=== PATIENT | female | born 1940 | race Caucasian/White ===

== ENCOUNTER 2017-03-29 09:55 | Inpatient (IN) | payer MEDICARE ==
[2017-03-29] MEDS ORDERED: PROVENTIL 2.5 MG/3 ML NEB IH PRN (10:24)
[2017-03-29 10:27] LABS: BASOPHIL % 0.1 % (0.0-0.4); Eosinophil % 3.6 % (0.00-5.0); Granulocytes % 78.4 % (36.0-66.0); Lymphocytes % 10.4 % (24.0-44.0); Mean Cell Volume 90.1 fl (78-100); Mean Corpuscular Hemoglobin 28.8 pg (26-32); Mean Platelet Volume 8.8 fl (6-9.5); Monocytes % 7.5 % (0.0-12.0); Platelet Count 397 K/mm3 (150-450); Red Blood Count 4.73 M/mm3 (4.1-5.4); Red Cell Distribution Width 16.5 % (11.5-14.0); White Blood Count 8.3 K/mm3 (4.0-10.5)
[2017-03-29 10:41] LABS: ALBUMIN 2.6 g/dL (3.4-5.0); ALKALINE PHOSPHATASE 73 U/L (46-116); ANION GAP 11.2 MEQ/L (5-15); BLOOD UREA NITROGEN 12 mg/dL (9-20); CHLORIDE 104 mEq/L (98-107); Carbon Dioxide 27.8 mEq/L (21-32); Glucose 92 MG/DL (70-110); SGOT/AST 22 U/L (15-37); SGPT/ALT 20 U/L (12-78); SODIUM 139 mEq/L (136-145); TROPONIN < 0.017 ng/ml (0.000-0.056); Total Protein 6.7 gm/dL (6.4-8.2)
[2017-03-29] MEDS: Sodium Chloride 0.9% 1000 ML 1,000 ML IV SCH (10:48)
[2017-03-29 11:00] LABS: Bilirubin NEGATIVE (NEGATIVE); Blood NEGATIVE Ery/ul (0-5); COMPLETE URINE MICROSCOPIC? NO; Collection Type CCMS; Glucose NEGATIVE (NEGATIVE); Leukocyte Esterase NEGATIVE (NEGATIVE)
[2017-03-29] MEDS ORDERED: ROCEPHIN 1 Gm-D5w 50 ml Bag** 1 G/50 ML IVPB IV SCH (11:00)
[2017-03-29] MEDS ORDERED: MEDICATION INTERVENTION MC PRN (11:33)
[2017-03-29] MEDS ORDERED: PHARMACY DOSING REQUEST MC ONE (12:00)
[2017-03-29] MEDS: CLARITIN 10 MG PO SCH (12:04)
[2017-03-29] MEDS: ECOTRIN 81 MG PO SCH (12:04)
[2017-03-29] MEDS: SYNTHROID 50 MCG PO SCH (12:04)
--- NOTE | 2017-03-29 12:04 | XRAY ---
Exam: Two-view chest from 03/29/2017 Comparison: Two-view chest from 12/26/2015. Indication: Shortness of breath, cough Findings: Upright PA and lateral chest films are submitted for evaluation. The lungs again appear mildly hyperinflated on the lateral image with a mild increased AP diameter of the chest. This is unchanged. The transverse heart size appears borderline enlarged. A calcified mildly tortuous descending thoracic aorta is seen. The current study reveals mild bibasilar airspace disease consistent with small infiltrates and/or atelectasis as well as small bibasilar pleural effusions representing an unfavorable change from 02/25/2016. No significant central vascular congestion is seen. I believe there is some minimal pleural reaction within the minor fissure on the right on the PA film and the inferior aspect of the major fissure on the lateral radiograph. The remainder of the lung sanchez appears clear. Right-sided portacatheter is again seen with the tip in the distal SVC pointing inferiorly. The bones are demineralized. Dorsal kyphosis and mild diffuse thoracic spondylosis are seen. Impression: 1. Development of mild bibasilar airspace opacities consistent with infiltrates/atelectasis as well as small bibasilar pleural effusions. This may reflect pneumonia. Correlate clinically. Follow-up is recommended..
[2017-03-29] MEDS: Protonix 40MG Tablet PO SCH ×2 (12:05→22:08)
[2017-03-29] MEDS: ENOXAPARIN SODIUM SQ SCH (12:48)
[2017-03-29] MEDS ORDERED: TYLENOL EXTRA STRENGTH 500 MG PO SCH (13:00)
--- NOTE | 2017-03-29 13:58 | XRAY ---
Exam: CT of the chest with IV contrast per PE protocol from 03/29/2017. Comparison: PA and lateral chest films from 03/29/[address] of the chest with IV contrast from 08/02/2015. Indication: Elevated d-dimer (610). History of ovarian cancer. Technique: Post-IV contrast axial images were obtained through the chest per PE protocol using 80 cc of Isovue-370 IV contrast. Reconstructed sagittal images and coronal MIP images were obtained. Findings: The central pulmonary arteries enhance well. I see no filling defects to suggest pulmonary emboli. The thoracic aorta appears of normal size and reveals no dissection. A right-sided portacatheter is seen with the tip extending into the SVC. The thyroid gland reveals a calcification within the anterior aspect of the right lobe representing no change. I note some mild mediastinal and right perihilar/infrahilar lymphadenopathy. This appears to be new as compared to 08/02/2015. On axial image #89 there is an 8 mm in diameter short axis lymph node within the right paratracheal projection. Within the distal right paratracheal projection there is 1.1 cm in diameter short axis lymph node on axial image #92. Just inferior to this, anterior and to the right of the sofía there is a 1.2 cm in short axis lymph node on axial image #95. The lymph node within the right hilum measuring about about 1.5 cm in short axis on axial image #100. There is also a 1.7 cm in diameter short axis right infrahilar lymph node on axial image #24. Some coronary artery vascular calcification is seen on the left. A granulomatous calcification is seen at the lower posterior margin of the left hilum representing no change. There is a moderate posterior layering right pleural effusion and a mild to moderate posterior layering left pleural effusion. I also note some focal atelectasis and mild airspace infiltrate at the central right lung base. Mild atelectasis/scarring is seen at the anterior medial right lung base and at the anterior left lung base. No soft tissue lung nodules are seen. There is a mild hiatal hernia. Within the left adrenal gland there is a new 2 cm in diameter solid soft tissue nodule which is not seen on the exam of 08/02/2015. Given the patient's history of ovarian cancer, an adrenal metastasis must be considered. This measures + 71 Hounsfield units. The right adrenal gland appears unremarkable. The remainder of the visualized upper abdomen appears normal. Impression: 1. I see no definite findings to suggest pulmonary emboli. 2. However, there is a moderate posterior right pleural effusion and a mild to moderate posterior left pleural effusion. Consider fluid volume overload versus chronic heart failure. 3. I note some new mediastinal and right perihilar/infrahilar lymphadenopathy as compared to 08/02/2015. I do not know whether this is due to reactive lymphadenopathy or metastatic disease. Consider further evaluation with a PET/CT fusion scan. 4. In addition, there is a new 2 cm in diameter left adrenal nodule which is not seen on the prior CT study of 08/02/2015. A left adrenal metastasis must be considered. The patient has a history of ovarian cancer. 5. I note some bibasilar atelectatic changes. In addition, there is some mild airspace infiltrate at the mid posterior right lung base. Concomitant pneumonia is not excluded. 6. Stable mild retrocardiac hiatal hernia. 7. Right-sided PICC line is again seen with the tip in the SVC.
[2017-03-29] MEDS: PROVENTIL 2.5 MG/3 ML NEB IH SCH ×3 (15:07→23:17)
[2017-03-29] MEDS: TYLENOL EXTRA STRENGTH 500 MG PO SCH ×2 (15:26→22:08)
[2017-03-29] MEDS: Levofloxacin 500MG/100ML D5W 500 MG/100 ML BAG IV SCH (16:10)
[2017-03-29] MEDS ORDERED: Neurontin 100 MG PO SCH (22:00)
[2017-03-29] MEDS ORDERED: NON-FORMULARY ITEM (Omeprazole [Prilosec] 40 MG) PO SCH (22:00)
[2017-03-29] MEDS: Mirapex 0.5 MG Tablet PO SCH (22:06)
[2017-03-29] MEDS: NEURONTIN 300 MG PO SCH (22:07)
[2017-03-29] MEDS: NORVASC 5 MG PO SCH (22:07)
[2017-03-30] MEDS: Sodium Chloride 0.9% 1000 ML 1,000 ML IV SCH ×2 (00:03→12:01)
[2017-03-30] MEDS: ENOXAPARIN SODIUM SQ SCH ×2 (00:03→08:49)
[2017-03-30] MEDS: PROVENTIL 2.5 MG/3 ML NEB IH SCH ×6 (03:10→23:11)
[2017-03-30] MEDS: TYLENOL EXTRA STRENGTH 500 MG PO SCH ×4 (04:23→22:08)
[2017-03-30] MEDS: CLARITIN 10 MG PO SCH (08:47)
[2017-03-30] MEDS: Protonix 40MG Tablet PO SCH ×2 (08:47→22:06)
[2017-03-30] MEDS: ECOTRIN 81 MG PO SCH (08:47)
[2017-03-30] MEDS: SYNTHROID 50 MCG PO SCH (08:48)
[2017-03-30] MEDS ORDERED: ASPIRIN PO SCH (10:00)
--- NOTE | 2017-03-30 11:06 | PCM.HP ---
History of Present Illness - Chief Complaint Chief Complaint: cough,sob History of Present Illness: is a 76 year old female pt of mine from [facility] who came to infusion for a regular flush and was found to be SOB. She does c/o 3d of increased cough and SOB; had some production of faith sputum. Her d-dimer was elevated but CT chest negative for PE (likely pneumonia seen). Also on CT were new lymph nodes in mediastinum and R perihilar area, as well as a new 2cm L adrenal nodule. She has a hx of ovarian cancer, treated with chemotherapy. She tolerated chemotherapy poorly and states she doesn't want anymore treatment. We have talked about this at length in the office before (and discussed again today) and she can certainly refuse treatment, knowing that metastatic disease will ultimately be fatal. - Review of Systems Constitutional: No Fever Respiratory: Cough, Orthopnea, Short Of Breath Abdominal/Gastrointestinal: Nausea, Vomiting, Constipation All Other Systems: Reviewed and Negative Medications & Allergies Home Medications: Home Medication List Levothyroxine Sodium 50 Mcg [Synthroid 50 Mcg] 50 mcg PO DAILY 02/18/14 [ History Confirmed 03/29/17] Loratadine 10 mg [Claritin 10 mg] 10 mg PO DAILY 02/18/14 [History Confirmed 03/29/17] Omeprazole [Prilosec] 40 mg PO BID 02/18/14 [History Confirmed 03/29/17] Pramipexole Di-HCl 0.5 mg [Mirapex 0.5 MG Tablet] 4.5 mg PO HS 02/18/14 [ History Confirmed 03/29/17] Aspirin 1 tablet PO DAILY 01/21/15 [History Confirmed 03/29/17] Acetaminophen 1,000 mg PO QID 12/26/15 [History Confirmed 03/29/17] Amlodipine Besylate 5 mg [Norvasc 5 mg] 2.5 mg PO QHS 10/26/16 [History Confirmed 03/29/17] Gabapentin 300 mg PO HS 11/23/16 [History Confirmed 03/29/17] Linaclotide [Linzess] 145 mcg PO DAILY 12/28/16 [History Confirmed 03/29/17] Allergies/Adverse Reactions: Allergies Allergy/AdvReac Type Severity Reaction Status Date / Time bacitracin zinc AdvReac Verified 03/29/17 09:49 [From Neosporin ([id number])] diazepam [From Valium] AdvReac Verified 03/29/17 09:49 diphenhydramine HCl AdvReac Verified 03/29/17 09:49 [From Benadryl] erythromycin base AdvReac Verified 03/29/17 09:49 [Erythromycin Base] hydrogen peroxide AdvReac Verified 03/29/17 09:49 morphine AdvReac Verified 03/29/17 09:49 neomycin sulfate AdvReac Verified 03/29/17 09:49 [From Neosporin ([id number])] Neuromuscular Blockers, AdvReac Verified 03/29/17 09:49 Steroidal [Steroidal Neuromuscular Blockers] NSAIDS (Non-Steroidal AdvReac Verified 03/29/17 09:49 Anti-Inflamma polymyxin B AdvReac Verified 03/29/17 09:49 [From Neosporin ([id number])] promethazine HCl AdvReac Verified 03/29/17 09:49 [From Phenergan] - Past Medical History Past Medical History: Yes Neurological History: No Pertinent History ENT History: No Pertinent History Cardiac History: Angina, High Cholesterol, Hypertension Respiratory History: No Pertinent History Endocrine Medical History: No Pertinent History Musculoskelatal History: Osteoarthritis GI Medical History: No Pertinent History History: No Pertinent History Pyscho-Social History: No Pertinent History Reproductive Disorders: No Pertinent History Comment: MALIGNANT TUMOR OF OVARY; VENOUS STASIS, GERD, CELLULITIS OF LE, PAIN IN UE AND LE, - Female History Are you now?: No - Past Surgical History Past Surgical History: Yes Neuro Surgical History: No Pertinent History Cardiac History: Vascular Surgery Respiratory Surgery: No Pertinent History GI Surgical History: Appendectomy Genitourinary Surgical Hx: No Pertinent History Musculskeletal Surgical Hx: Joint Replacement, Orthopedic Surgery Female Surgical History: No Pertinent History Other Surgical History: oophorectomy r/t cancer, knee debridement/scope, cataract surgery, carpal tunnel, knee scope, states nodule removed from left side neck, ovarian cancer,received tx for cancer. right chest port - Social History Smoking Status: Former smoker Exposure to second hand smoke: No Alcohol: None Drug Use: none - Physical Exam Vital Signs: Vital Signs - 24 hr Temp Pulse Resp BP Pulse Ox 03/30/17 07:44 97.8 F 86 20 138/74 96 03/30/17 06:58 85 22 93 L 03/30/17 04:00 98.0 F 84 24 104/56 91 L 03/30/17 03:10 87 20 94 L 03/30/17 00:00 98.4 F 101 H 22 138/69 92 L 03/29/17 23:15 89 18 92 L 03/29/17 20:00 98.0 F 98 H 18 130/65 93 L 03/29/17 18:41 87 19 92 L 03/29/17 16:00 84 18 117/59 92 L 03/29/17 15:02 88 20 93 L 03/29/17 12:00 97.8 F 85 20 120/69 93 L Oxygen-Last 24 hours O2 Percentage 2 Liters = 28% O2 Percentage 2 Liters = 28% O2 Percentage 2 Liters = 28% O2 Percentage 2 Liters = 28% General Appearance: no apparent distress, alert, obese Neurologic Exam: oriented x 3, cooperative Eye Exam: eyes nml inspection Ears, Nose, Throat Exam: moist mucous membranes Neck Exam: normal inspection, non-tender, other (L lateral/posterior neck with hard approx 4x4 cm mass, fixed) Respiratory Exam: diminished breath sounds, wheezing, other (fair to good air exchange), No crackles/rales, No rhonchi Cardiovascular Exam: regular rate/rhythm, normal heart sounds, No murmur Extremity Exam: swelling (trace pretibial edema bilat), other (chronic venous stasis change LE bilat) Skin Exam: normal color, warm, dry Results - Labs Lab/Micro Results: Lab Results-Last 24 Hours 03/29/17 Range/Units 10:00 D-Dimer 610 H* (0-500) ng/mL - Radiology Impressions Radiology Exams & Impressions: Radiology Procedures Category Date Time Status CHEST 2 VIEWS (PA AND LAT) Routine Exams 03/29/17 10:25 Completed CHEST WITH CONTRAST [CT] Stat Exams 03/29/17 11:55 Completed - Other Procedures and Tests Respiratory Therapy 03/29/17 10:25 Respiratory Nebulizer UD 03/29/17 11:00 Oxygen NASAL CANNULA 2 lpm 03/29/17 11:02 Respiratory Nebulizer Q4H Assessment/Plan (1) Pneumonia Current Visit: Yes Status: Acute Qualifiers: Pneumonia type: due to unspecified organism Laterality: bilateral Lung location: lower lobe of lung Qualified Code(s): J18.9 - Pneumonia, unspecified organism Assessment & Plan: on IV levaquin. She is less short of breath while upright today but still can't lie down to sleep. She is wheezy, but dislikes the feeling she gets from steroids so will avoid for now and tx with abx and breathing treatments. Code(s): J18.9 - PNEUMONIA, UNSPECIFIED ORGANISM (2) Dyspnea Current Visit: Yes Status: Acute Qualifiers: Dyspnea type: orthopnea Qualified Code(s): R06.01 - Orthopnea Assessment & Plan: mild improvement Code(s): R06.00 - DYSPNEA, UNSPECIFIED (3) Nausea & vomiting Current Visit: Yes Status: Acute Assessment & Plan: will add phenergan prn (avoid zofran as she is on levaquin). Code(s): R11.2 - NAUSEA WITH VOMITING, UNSPECIFIED (4) Constipation Current Visit: Yes Status: Chronic Qualifiers: Constipation type: slow transit constipation Qualified Code(s): K59.01 - Slow transit constipation Assessment & Plan: will try dulcolax suppository Code(s): K59.00 - CONSTIPATION, UNSPECIFIED (5) Pneumococcal vaccination indicated Current Visit: Yes Status: Acute Assessment & Plan: She is due for the prevnar 13 valent vaccine now; in 1 year will be due for 23 valent vaccine. Code(s): Z91.89 - OTH PERSONAL RISK FACTORS, NOT ELSEWHERE CLASSIFIED (6) Lymphadenopathy Current Visit: Yes Status: Acute Assessment & Plan: She is definitely not interested in any further chemotherapy, so we will not pursue further imaging at this time. The patient understands that metastatic cancer, untreated, will lead to her . Code(s): R59.1 - GENERALIZED ENLARGED LYMPH NODES (7) Mass in neck Current Visit: Yes Status: Acute Assessment & Plan: as above. Pt thinks, I think correctly, that this is a metastatic lesion. Code(s): R22.1 - LOCALIZED SWELLING, MASS AND LUMP, NECK
[2017-03-30] MEDS: Lasix 40 MG/4 ML IV SCH (12:01)
[2017-03-30] MEDS: Levofloxacin 500MG/100ML D5W 500 MG/100 ML BAG IV SCH (15:12)
[2017-03-30] MEDS: NORVASC 5 MG PO SCH (22:07)
[2017-03-30] MEDS: Mirapex 0.5 MG Tablet PO SCH (22:09)
[2017-03-30] MEDS: NEURONTIN 300 MG PO SCH (22:09)
[2017-03-30] MEDS ORDERED: Miralax Powder 17GM PACKET PO PRN (23:13)
[2017-03-31] MEDS: Sodium Chloride 0.9% 1000 ML 1,000 ML IV SCH ×2 (00:43→13:24)
[2017-03-31] MEDS: PROVENTIL 2.5 MG/3 ML NEB IH SCH ×6 (02:54→23:58)
[2017-03-31] MEDS: TYLENOL EXTRA STRENGTH 500 MG PO SCH ×4 (03:38→22:21)
[2017-03-31] MEDS: Colace 100 MG PO SCH ×2 (06:55→21:34)
[2017-03-31 07:05] LABS: Mean Cell Volume 91.2 fl (78-100); Mean Corpuscular Hemoglobin 28.9 pg (26-32); Mean Platelet Volume 8.8 fl (6-9.5); Platelet Count 364 K/mm3 (150-450); Red Blood Count 4.08 M/mm3 (4.1-5.4); Red Cell Distribution Width 16.3 % (11.5-14.0); White Blood Count 4.9 K/mm3 (4.0-10.5)
[2017-03-31 07:14] LABS: ANION GAP 7.6 MEQ/L (5-15); CHLORIDE 106 mEq/L (98-107); Carbon Dioxide 29.8 mEq/L (21-32); Glucose 89 MG/DL (70-110); Potassium 3.5 mEq/L (3.5-5.1); SODIUM 140 mEq/L (136-145)
[2017-03-31 07:22] LABS: BLOOD UREA NITROGEN 10 mg/dL (9-20)
[2017-03-31] MEDS: Lasix 40 MG/4 ML IV SCH (10:23)
[2017-03-31] MEDS: Protonix 40MG Tablet PO SCH ×2 (10:24→16:57)
[2017-03-31] MEDS: ENOXAPARIN SODIUM SQ SCH (10:24)
[2017-03-31] MEDS: ECOTRIN 81 MG PO SCH (10:24)
[2017-03-31] MEDS: SYNTHROID 50 MCG PO SCH (10:24)
[2017-03-31] MEDS: CLARITIN 10 MG PO SCH (10:24)
[2017-03-31] MEDS: Dulcolax 10 MG SUPP PR PRN (10:26)
--- NOTE | 2017-03-31 11:19 | PCM.NOTE ---
Date and Time: 03/31/17 1116 Subjective Assessment: She is feeling somewhat better. Still has not had a bowel movement. She is asking about getting the mass on her neck removed. - Review of Systems Constitutional: No Fever Respiratory: Cough Objective Exam General Appearance: no apparent distress, obese Neurologic Exam: alert, oriented x 3, cooperative Skin Exam: normal color, warm, dry Neck Exam: other (hard mass L lateral neck approx 4x4cm) Respiratory Exam: diminished breath sounds, No crackles/rales, No rhonchi, No wheezing Cardiovascular Exam: regular rate/rhythm, normal heart sounds, No murmur Back Exam: normal inspection OBJECTIVE DATA Vital Signs: Vital Signs - 24 hr Temp Pulse Resp BP Pulse Ox 03/31/17 08:00 22 03/31/17 07:39 84 22 91 L 03/31/17 07:20 97.5 F 86 22 103/57 93 L 03/31/17 04:00 98.1 F 94 H 24 110/64 94 L 03/31/17 00:00 98.3 F 91 H 24 99/52 91 L 03/30/17 23:10 85 18 93 L 03/30/17 20:00 97.8 F 85 20 130/77 95 03/30/17 19:13 89 20 94 L 03/30/17 16:03 96.6 F 80 18 110/64 96 03/30/17 16:00 18 03/30/17 14:42 87 22 94 L 03/30/17 12:37 97.6 F 90 22 146/76 91 L 03/30/17 12:00 22 Oxygen-Last 24 hours O2 Percentage 2 Liters = 28% O2 Percentage 2 Liters = 28% O2 Percentage 2 Liters = 28% O2 Percentage 2 Liters = 28% O2 Percentage 3 Liters = 32% Pain Assessment - Last Documented Pain Intensity 7 Pain Scale Used 0-10 Pain Scale Intake and Output: Intake & Output 03/28/17 03/29/17 03/30/17 03/31/17 11:59 11:59 11:59 11:59 Intake Total 4021 4972 Output Total 250 1400 Balance -250 4026 -8255 Weight 95.436 kg Lab Results: Lab Results-Last 24 Hours 03/30/17 03/31/17 03/31/17 Range/Units 12:00 05:40 05:40 WBC 4.9 (4.0-10.5) K/mm3 RBC 4.08 L (4.1-5.4) M/mm3 Hgb 11.8 L (12.0-16.0) gm/dl Hct 37.2 (35-47) % MCV 91.2 (78-100) fl MCH 28.9 (26-32) pg MCHC 31.7 L (32-36) g/dl RDW 16.3 H (11.5-14.0) % Plt Count 364 (150-450) K/mm3 MPV 8.8 (6-9.5) fl Sodium 140 (136-145) mEq/L Potassium 3.5 (3.5-5.1) mEq/L Chloride 106 (98-107) mEq/L Carbon Dioxide 29.8 (21-32) mEq/L Anion Gap 7.6 (5-15) MEQ/L BUN 10 (9-20) mg/dL Creatinine 0.72 (0.55-1.30) mg/dl Estimated GFR > 60 ML/MIN Glucose 89 (70-110) MG/DL Calcium 8.0 L (8.5-10.1) mg/dL NT-Pro-B Natriuret Pep 78 (0-450) pg/ml Radiology Exams: Radiology Procedures Category Date Time Status CHEST 2 VIEWS (PA AND LAT) Routine Exams 03/29/17 10:25 Completed CHEST WITH CONTRAST [CT] Stat Exams 03/29/17 11:55 Completed Assessment/Plan (1) Pneumonia Current Visit: Yes Status: Acute Qualifiers: Pneumonia type: due to unspecified organism Laterality: bilateral Lung location: lower lobe of lung Qualified Code(s): J18.9 - Pneumonia, unspecified organism Assessment & Plan: Still coughing, SOB at times. May be able to d/c home tomorrow if she continues to improve. No wheezing today. Code(s): J18.9 - PNEUMONIA, UNSPECIFIED ORGANISM (2) Dyspnea Current Visit: Yes Status: Acute Qualifiers: Dyspnea type: orthopnea Qualified Code(s): R06.01 - Orthopnea Code(s): R06.00 - DYSPNEA, UNSPECIFIED (3) Nausea & vomiting Current Visit: Yes Status: Resolved Qualifiers: Vomiting type: unspecified Vomiting Intractability: non-intractable Qualified Code(s): R11.2 - Nausea with vomiting, unspecified Code(s): R11.2 - NAUSEA WITH VOMITING, UNSPECIFIED (4) Constipation Current Visit: Yes Status: Chronic Qualifiers: Constipation type: slow transit constipation Qualified Code(s): K59.01 - Slow transit constipation Assessment & Plan: getting a rectal suppository today Code(s): K59.00 - CONSTIPATION, UNSPECIFIED (5) Pneumococcal vaccination indicated Current Visit: Yes Status: Acute Code(s): Z91.89 - OTH PERSONAL RISK FACTORS , NOT ELSEWHERE CLASSIFIED (6) Lymphadenopathy Current Visit: Yes Status: Acute Code(s): R59.1 - GENERALIZED ENLARGED LYMPH NODES (7) Mass in neck Current Visit: Yes Status: Acute Assessment & Plan: Will start with CT neck. We discussed ENT referral vs. Dr. Pool (radiation oncology) - she does not want to return to her regular oncologist and desires palliative treatment only. Code(s): R22.1 - LOCALIZED SWELLING, MASS AND LUMP, NECK
[2017-03-31] MEDS ORDERED: CITROMA 296 ML PO ONE (14:30)
[2017-03-31] MEDS: Levofloxacin 500MG/100ML D5W 500 MG/100 ML BAG IV SCH (15:35)
--- NOTE | 2017-03-31 20:54 | XRAY ---
Indication: Left neck mass for 6-a months. Multiple contiguous axial images obtained through the neck using 60 cc Isovue 370 contrast. Comparison: January 31, 2015. There are now several left cervical (level I, 2, and 3) enlarged lymph nodes, largest 3.0 x 4.0 cm. Several of these demonstrates central hypoattenuation suggesting necrosis. Major arteries and veins are normal in course and caliber. There is a right jugular central venous access catheter with the tip not included in the [id number]. Supra-and infraglottic airway widely patent. Underlying cervical spine intact with mild multilevel degenerative changes including minimal 2 mm C4 anterolisthesis on C5. Base of the brain unremarkable. Lung apices demonstrates large effusions, right greater than left. Impression: 1. Multiple left cervical necrotic adenopathy. 2. Incidental biapical pleural effusions recently reported on CT chest exam. Comment: Preliminary interpretation was made by [facility]. Biapical effusions are not reported. CTDI 24.77
[2017-03-31] MEDS: NEURONTIN 300 MG PO SCH (21:34)
[2017-03-31] MEDS: Mirapex 0.5 MG Tablet PO SCH (21:34)
[2017-03-31] MEDS: NORVASC 5 MG PO SCH (21:34)
[2017-04-01] MEDS: PROVENTIL 2.5 MG/3 ML NEB IH SCH ×6 (00:55→23:13)
[2017-04-01] MEDS: Sodium Chloride 0.9% 1000 ML 1,000 ML IV SCH ×2 (03:22→16:20)
[2017-04-01] MEDS: TYLENOL EXTRA STRENGTH 500 MG PO SCH ×4 (03:23→23:13)
[2017-04-01 06:49] LABS: Mean Cell Volume 91.2 fl (78-100); Mean Platelet Volume 8.7 fl (6-9.5); Platelet Count 351 K/mm3 (150-450); Red Blood Count 4.07 M/mm3 (4.1-5.4); Red Cell Distribution Width 16.4 % (11.5-14.0); White Blood Count 4.8 K/mm3 (4.0-10.5)
[2017-04-01 06:58] LABS: ANION GAP 8.6 MEQ/L (5-15); BLOOD UREA NITROGEN 9 mg/dL (9-20); CHLORIDE 105 mEq/L (98-107); Glucose 88 MG/DL (70-110); Potassium 3.7 mEq/L (3.5-5.1); SODIUM 141 mEq/L (136-145)
[2017-04-01 07:30] LABS: Mean Corpuscular Hemoglobin 28.9 pg (26-32)
[2017-04-01] MEDS ORDERED: solu-MEDROL 40 MG IV SCH (08:30)
--- NOTE | 2017-04-01 08:34 | PCM.NOTE ---
Date and Time: 04/01/17831 Subjective Assessment: Pt feeling more short of breath this morning. - Review of Systems Constitutional: No Fever Respiratory: Cough, Short Of Breath Objective Exam General Appearance: mild distress, alert Neurologic Exam: oriented x 3, cooperative Skin Exam: normal color, warm, dry Respiratory Exam: diminished breath sounds (fair air exchange), wheezing (exp throughout), No crackles/rales, No rhonchi Cardiovascular Exam: regular rate/rhythm, normal heart sounds, No murmur OBJECTIVE DATA Vital Signs: Vital Signs - 24 hr Temp Pulse Resp BP Pulse Ox 04/01/17 07:33 97.7 F 86 22 120/63 92 L 04/01/17 04:00 98.3 F 82 25 H 127/69 92 L 04/01/17 00:00 26 H 03/31/17 23:41 98.7 F 88 26 H 115/72 90 L 03/31/17 20:29 86 22 94 L 03/31/17 20:00 98.5 F 86 20 111/59 91 L 03/31/17 16:58 22 95 03/31/17 15:52 24 03/31/17 14:46 92 H 24 03/31/17 12:32 98 F 100 H 20 151/78 95 03/31/17 11:48 20 03/31/17 11:44 92 H 20 Oxygen-Last 24 hours O2 Percentage 2 Liters = 28% O2 Percentage 2 Liters = 28% O2 Percentage 3 Liters = 32% O2 Percentage 3 Liters = 32% O2 Percentage 4 Liters = 36% O2 Percentage 4 Liters = 36% Pain Assessment - Last Documented Pain Intensity 0 Pain Scale Used 0-10 Pain Scale Intake and Output: Intake & Output 03/29/17 03/30/17 03/31/17 04/01/17 11:59 11:59 11:59 11:59 Intake Total 4026 9230 3235 Output Total 250 6486 3650 Balance -250 4027 -3028 -412 Weight 95.436 kg Lab Results: Lab Results-Last 24 Hours 04/01/17 04/01/17 Range/Units 05:45 05:45 WBC 4.8 (4.0-10.5) K/mm3 RBC 4.07 L (4.1-5.4) M/mm3 Hgb 11.8 L (12.0-16.0) gm/dl Hct 37.1 (35-47) % MCV 91.2 (78-100) fl MCH 28.9 (26-32) pg MCHC 31.8 L (32-36) g/dl RDW 16.4 H (11.5-14.0) % Plt Count 351 (150-450) K/mm3 MPV 8.7 (6-9.5) fl Sodium 141 (136-145) mEq/L Potassium 3.7 (3.5-5.1) mEq/L Chloride 105 (98-107) mEq/L Carbon Dioxide 31.0 (21-32) mEq/L Anion Gap 8.6 (5-15) MEQ/L BUN 9 (9-20) mg/dL Creatinine 0.69 (0.55-1.30) mg/dl Estimated GFR > 60 ML/MIN Glucose 88 (70-110) MG/DL Calcium 8.5 (8.5-10.1) mg/dL NT-Pro-B Natriuret Pep 157 (0-450) pg/ml Radiology Exams: Radiology Procedures Category Date Time Status CHEST 2 VIEWS (PA AND LAT) Urgent Exams 04/01/17 Ordered NECK WITH CONTRAST [CT] Routine Exams 03/31/17 11:19 Completed Multi-Disciplinary Progress Notes: Multi-Disciplinary Progress Notes 04/01/17 03:21 Respiratory Note by Jones Chance PT REFUSED HER DUONEB TX ON 03-31 AT 2300 AND AGAIN AT 0300 ON 04/01 STATING SHE JUST WANTED TO SLEEP. Initialized on 04/01/17 03:21 - END OF NOTE 03/31/17 13:05 Case Management Note by Bela Guadarrama SPOKE WITH PT AND PT'S , [employer] - DESIGNATED LAY CAREGIVER REGARDING NEEDS ON DISCHARGE. PT REPORTS THAT SHE IS NORMALLY INDEPENDENT WITH ALL ADL'S , HAS AT HOME TO ASSIST IN CARE IF NEEDED. DISCUSSED HOME HEALTH CARE SERVICES - PT/ REPORTS THAT THEY DON'T FEEL THAT THEY WILL BE NEEDED ON DISCHARGE. DID DISCUSS QUALIFICATIONS FOR HOME OXYGEN. PT AND REPORTS THAT IF PT DOES QUALIFY THEN THEY WANT TO USE [facility] FOR ALL HOME OXYGEN NEEDS. ALSO, DISCUSSED MASS ON HER NECK - PT REPORTS THAT SHE IS INTERESTED IN SEEING ABOUT HAVING IT SURGICALLY REMOVED IF POSSIBLE, BUT NOT INTERESTED IN DOING ANY CHEMO OR RADIATION TO FOLLOW IF NEEDED. DENIES ADDNL NEEDS FOR DISCHARGE. PT REPORTS THAT SHE WILL LIKELY GO HOME TOMORROW, IF ALL GOES WELL. WILL CONTINUE TO FOLLOW FOR ALL DC NEEDS. Initialized on 03/31/17 13:05 - END OF NOTE Assessment/Plan (1) Pneumonia Current Visit: Yes Status: Acute Qualifiers: Pneumonia type: due to unspecified organism Laterality: bilateral Lung location: lower lobe of lung Qualified Code(s): J18.9 - Pneumonia, unspecified organism Assessment & Plan: On IV levaquin. WIll add solumedrol as she is wheezing this morning. Code(s): J18.9 - PNEUMONIA, UNSPECIFIED ORGANISM (2) Dyspnea Current Visit: Yes Status: Acute Qualifiers: Dyspnea type: orthopnea Qualified Code(s): R06.01 - Orthopnea Assessment & Plan: If it does not improve on the solumedrol, will have to consider evaluation for PE and/or changing antibiotics. Code(s): R06.00 - DYSPNEA, UNSPECIFIED (3) Nausea & vomiting Current Visit: Yes Status: Resolved Qualifiers: Vomiting type: unspecified Vomiting Intractability: non-intractable Qualified Code(s): R11.2 - Nausea with vomiting, unspecified Code(s): R11.2 - NAUSEA WITH VOMITING, UNSPECIFIED (4) Constipation Current Visit: Yes Status: Chronic Qualifiers: Constipation type: slow transit constipation Qualified Code(s): K59.01 - Slow transit constipation Code(s): K59.00 - CONSTIPATION, UNSPECIFIED (5) Pneumococcal vaccination indicated Current Visit: Yes Status: Acute Code(s): Z91.89 - OTH PERSONAL RISK FACTORS , NOT ELSEWHERE CLASSIFIED (6) Lymphadenopathy Current Visit: Yes Status: Acute Code(s): R59.1 - GENERALIZED ENLARGED LYMPH NODES (7) Mass in neck Current Visit: Yes Status: Acute Assessment & Plan: Necrotic lymph nodes - I will discuss with Dr. Pool, radiation oncology, today. Code(s): R22.1 - LOCALIZED SWELLING, MASS AND LUMP, NECK
[2017-04-01] MEDS: Lasix 40 MG/4 ML IV SCH (08:45)
[2017-04-01] MEDS: ECOTRIN 81 MG PO SCH (08:46)
[2017-04-01] MEDS: SYNTHROID 50 MCG PO SCH (08:46)
[2017-04-01] MEDS: ENOXAPARIN SODIUM SQ SCH (08:46)
[2017-04-01] MEDS: Colace 100 MG PO SCH ×2 (08:46→20:45)
[2017-04-01] MEDS: CLARITIN 10 MG PO SCH (08:46)
[2017-04-01] MEDS: Protonix 40MG Tablet PO SCH ×2 (08:46→20:51)
--- NOTE | 2017-04-01 09:58 | XRAY ---
Indication: Short of breath. Comparison: March 29, 2017. PA/lateral chest unchanged again hyperinflated with CT proven large bibasilar effusions with compressive atelectasis. Heart is not enlarged with stable right-sided Port-A-Cath. No new abnormalities.
[2017-04-01] MEDS: solu-MEDROL 125 MG IV SCH ×2 (14:28→20:44)
[2017-04-01] MEDS: Levofloxacin 500MG/100ML D5W 500 MG/100 ML BAG IV SCH (16:20)
[2017-04-01] MEDS: NORVASC 5 MG PO SCH (20:45)
[2017-04-01] MEDS: NEURONTIN 300 MG PO SCH (20:45)
[2017-04-01] MEDS: Mirapex 0.5 MG Tablet PO SCH (21:10)
[2017-04-02] MEDS: PROVENTIL 2.5 MG/3 ML NEB IH SCH ×6 (03:00→23:23)
[2017-04-02] MEDS: TYLENOL EXTRA STRENGTH 500 MG PO SCH ×4 (04:13→21:33)
[2017-04-02] MEDS: solu-MEDROL 125 MG IV SCH ×3 (06:19→21:27)
--- NOTE | 2017-04-02 08:35 | PCM.NOTE ---
Date and Time: 04/02/17 0832 Subjective Assessment: Pt's Sob is somewhat better. She feels less wheezy. Did not sleep well last night due to steroids. - Review of Systems Constitutional: No Fever Respiratory: Cough, Short Of Breath Objective Exam General Appearance: no apparent distress, alert Neurologic Exam: oriented x 3, cooperative Skin Exam: normal color, warm, dry Respiratory Exam: diminished breath sounds, wheezing (faint scattered), No crackles/rales, No rhonchi Cardiovascular Exam: regular rate/rhythm, normal heart sounds, murmur (II/ sys murmur) OBJECTIVE DATA Vital Signs: Vital Signs - 24 hr Temp Pulse Resp BP Pulse Ox 04/02/17 08:00 8 L 04/02/17 07:00 5 L 8 L 91 L 04/02/17 04:45 97.6 F 98 H 19 134/93 93 L 04/02/17 04:00 19 04/02/17 03:00 109 H 20 91 L 04/02/17 01:00 97.7 F 100 H 25 H 123/68 91 L 04/02/17 00:00 25 H 04/01/17 23:00 93 L 04/01/17 20:12 97.9 F 110 H 24 131/71 91 L 04/01/17 20:00 24 04/01/17 19:00 114 H 20 90 L 04/01/17 16:11 96.8 F 106 H 22 141/73 91 L 04/01/17 16:00 22 04/01/17 15:44 97 H 18 90 L 04/01/17 13:22 96.9 F 112 H 22 119/63 92 L 04/01/17 12:00 20 04/01/17 11:39 88 20 Oxygen-Last 24 hours O2 Percentage 2 Liters = 28% O2 Percentage 4 Liters = 36% O2 Percentage 4 Liters = 36% Pain Assessment - Last Documented Pain Intensity 3 Pain Scale Used 0-10 Pain Scale Intake and Output: Intake & Output 03/30/17 03/31/17 04/01/17 04/02/17 11:59 11:59 11:59 11:59 Intake Total 4027 5662 3653 1798 Output Total 6814 5640 1100 Balance 5260 -7967 -771 665 Radiology Exams: Radiology Procedures Category Date Time Status CHEST 2 VIEWS (PA AND LAT) Urgent Exams 04/01/17 Completed NECK WITH CONTRAST [CT] Routine Exams 03/31/17 11:19 Completed Multi-Disciplinary Progress Notes: Multi-Disciplinary Progress Notes 04/01/17 12:25 (created 04/01/17 15:41) Case Management Note by Bela Guadarrama REVIEWED DISCHARGE PLAN WITH PT AND . CONTINUE TO PLAN TO RETURN HOME TO PRE EPISODIC LEVEL OF FN[facility]. INDEPENDENT WITH ALL ADL'S. CAN ASSIST IF NEEDED. DENIES ADDNL NEEDS ON DISCHARGE. Initialized on 04/01/17 15:41 - END OF NOTE Assessment/Plan (1) Pneumonia Current Visit: Yes Status: Acute Qualifiers: Pneumonia type: due to unspecified organism Laterality: bilateral Lung location: lower lobe of lung Qualified Code(s): J18.9 - Pneumonia, unspecified organism Assessment & Plan: She is still SOB and on O2, she is on Levaquin IV and solumedrol. Code(s): J18.9 - PNEUMONIA, UNSPECIFIED ORGANISM (2) Dyspnea Current Visit: Yes Status: Acute Qualifiers: Dyspnea type: orthopnea Qualified Code(s): R06.01 - Orthopnea Assessment & Plan: I did consult pulmonary as she has large bilat pleural effusions. Code(s): R06.00 - DYSPNEA, UNSPECIFIED (3) Nausea & vomiting Current Visit: Yes Status: Resolved Qualifiers: Vomiting type: unspecified Vomiting Intractability: non-intractable Qualified Code(s): R11.2 - Nausea with vomiting, unspecified Code(s): R11.2 - NAUSEA WITH VOMITING, UNSPECIFIED (4) Constipation Current Visit: Yes Status: Resolved Qualifiers: Constipation type: slow transit constipation Qualified Code(s): K59.01 - Slow transit constipation Assessment & Plan: good results yesterday Code(s): K59.00 - CONSTIPATION, UNSPECIFIED (5) Pneumococcal vaccination indicated Current Visit: Yes Status: Acute Code(s): Z91.89 - OTH PERSONAL RISK FACTORS , NOT ELSEWHERE CLASSIFIED (6) Lymphadenopathy Current Visit: Yes Status: Acute Code(s): R59.1 - GENERALIZED ENLARGED LYMPH NODES (7) Mass in neck Current Visit: Yes Status: Acute Assessment & Plan: Will see Dr. Akers outpatient. Code(s): R22.1 - LOCALIZED SWELLING, MASS AND LUMP, NECK
[2017-04-02] MEDS: Sodium Chloride 0.9% 1000 ML 1,000 ML IV SCH (11:32)
[2017-04-02] MEDS: Lasix 40 MG/4 ML IV SCH (11:34)
[2017-04-02] MEDS: CLARITIN 10 MG PO SCH (11:36)
[2017-04-02] MEDS: Protonix 40MG Tablet PO SCH ×2 (11:37→21:26)
[2017-04-02] MEDS: ECOTRIN 81 MG PO SCH (11:37)
[2017-04-02] MEDS: Colace 100 MG PO SCH ×2 (11:38→21:24)
[2017-04-02] MEDS: SYNTHROID 50 MCG PO SCH (11:39)
[2017-04-02] MEDS: ENOXAPARIN SODIUM SQ SCH (11:40)
[2017-04-02] MEDS: Levofloxacin 500MG/100ML D5W 500 MG/100 ML BAG IV SCH (16:49)
[2017-04-02] MEDS: Mirapex 0.5 MG Tablet PO SCH (21:24)
[2017-04-02] MEDS: NEURONTIN 300 MG PO SCH (21:25)
[2017-04-02] MEDS: NORVASC 5 MG PO SCH (21:26)
[2017-04-03] MEDS: Sodium Chloride 0.9% 1000 ML 1,000 ML IV SCH ×2 (01:26→14:16)
[2017-04-03] MEDS: PROVENTIL 2.5 MG/3 ML NEB IH SCH ×6 (03:22→22:20)
[2017-04-03] MEDS: TYLENOL EXTRA STRENGTH 500 MG PO SCH ×4 (03:40→23:09)
[2017-04-03] MEDS: solu-MEDROL 125 MG IV SCH ×3 (06:17→21:56)
--- NOTE | 2017-04-03 08:20 | PCM.NOTE ---
Date and Time: 04/03/17815 Subjective Assessment: Pt is finally feeling better this morning! Slept a little last night. Breathing is better. Chantale po. - Review of Systems Constitutional: No Fever Respiratory: Cough, Short Of Breath Objective Exam General Appearance: no apparent distress, alert Neurologic Exam: oriented x 3, cooperative Skin Exam: normal color, warm, dry Eye Exam: eyes nml inspection Respiratory Exam: lungs clear, diminished breath sounds (fair to good air exchange), wheezing, No crackles/rales, No rhonchi Cardiovascular Exam: regular rate/rhythm, normal heart sounds, No murmur Extremity Exam: normal inspection OBJECTIVE DATA Vital Signs: Vital Signs - 24 hr Temp Pulse Resp BP Pulse Ox 04/03/17 07:22 96.7 F 96 H 22 141/77 95 04/03/17 06:53 96 H 20 92 L 04/03/17 04:10 97.1 F 108 H 18 139/73 91 L 04/03/17 04:00 20 04/03/17 03:22 108 H 18 91 L 04/03/17 00:13 97.4 F 102 H 19 131/77 91 L 04/03/17 00:00 18 04/02/17 23:24 102 H 18 91 L 04/02/17 20:00 97.8 F 97 H 18 137/84 91 L 04/02/17 19:44 97 H 18 91 L 04/02/17 16:15 98.2 F 95 H 18 160/87 92 L 04/02/17 16:00 18 04/02/17 15:00 96 H 18 91 L 04/02/17 13:00 97.6 F 5 L 8 L 134/93 04/02/17 12:00 8 L 04/02/17 09:00 97.6 F 5 L 8 L 134/93 Oxygen-Last 24 hours O2 Percentage 2 Liters = 28% O2 Percentage 3 Liters = 32% O2 Percentage 3 Liters = 32% O2 Percentage 3 Liters = 32% O2 Percentage 2 Liters = 28% Pain Assessment - Last Documented Pain Intensity 0 Pain Scale Used 0-10 Pain Scale Intake and Output: Intake & Output 03/31/17 04/01/17 04/02/17 04/03/17 11:59 11:59 11:59 11:59 Intake Total 9322 3560 1888 4787 Output Total 8000 4150 1100 1400 [facility] [phone] Assessment/Plan (1) Pneumonia Current Visit: Yes Status: Acute Qualifiers: Pneumonia type: due to unspecified organism Laterality: bilateral Lung location: lower lobe of lung Qualified Code(s): J18.9 - Pneumonia, unspecified organism Assessment & Plan: some improvement today. On IV levaquin and solumedrol. Code(s): J18.9 - PNEUMONIA, UNSPECIFIED ORGANISM (2) Pleural effusion Current Visit: Yes Status: Acute Assessment & Plan: On XR. Pulmonology has been consulted, thank you. Code(s): J90 - PLEURAL EFFUSION, NOT ELSEWHERE CLASSIFIED (3) Dyspnea Current Visit: Yes Status: Acute Qualifiers: Dyspnea type: orthopnea Qualified Code(s): R06.01 - Orthopnea Assessment & Plan: with pleural effusions. Pt is aware she has lymphadenopathy in the chest, likely metastatic disease, but she does not want any chemotherapy. This may be causing the pleural effusions. Code(s): R06.00 - DYSPNEA, UNSPECIFIED (4) Constipation Current Visit: Yes Status: Resolved Qualifiers: Constipation type: slow transit constipation Qualified Code(s): K59.01 - Slow transit constipation Code(s): K59.00 - CONSTIPATION, UNSPECIFIED (5) Pneumococcal vaccination indicated Current Visit: Yes Status: Acute Assessment & Plan: She will get prevnar 13 in the office. Code(s): Z91.89 - OTH PERSONAL RISK FACTORS, NOT ELSEWHERE CLASSIFIED (6) Lymphadenopathy Current Visit: Yes Status: Chronic Code(s): R59.1 - GENERALIZED ENLARGED LYMPH NODES (7) Mass in neck Current Visit: Yes Status: Chronic Assessment & Plan: She will see Dr. Pool for possible radiation (palliative) outpatient. Code(s): R22.1 - LOCALIZED SWELLING, MASS AND LUMP, NECK
[2017-04-03] MEDS: CLARITIN 10 MG PO SCH (09:37)
[2017-04-03] MEDS: Dulcolax 10 MG SUPP PR PRN (09:37)
[2017-04-03] MEDS: Colace 100 MG PO SCH ×2 (09:37→21:55)
[2017-04-03] MEDS: ENOXAPARIN SODIUM SQ SCH (09:38)
[2017-04-03] MEDS: Lasix 40 MG/4 ML IV SCH (09:38)
[2017-04-03] MEDS: SYNTHROID 50 MCG PO SCH (09:38)
[2017-04-03] MEDS: ECOTRIN 81 MG PO SCH (09:38)
[2017-04-03] MEDS: Protonix 40MG Tablet PO SCH ×2 (09:38→21:54)
--- NOTE | 2017-04-03 15:16 | CONS ---
CONSULT DATE: 04/03/2017 REASON FOR CONSULTATION: Evaluation of pneumonia, pleural effusion. HISTORY: History is obtained from reviewing the patient's current records and discussion with the patient. Ruby Lundberg is a 76 year-old woman with history of ovarian cancer diagnosed about five years ago status post chemotherapy x4, who has been admitted with complaints of shortness of breath. The patient reports that she saw Dr. Rodríguez for routine port flush when she was noted to have shortness of breath. The patient has been feeling sick for about a month. She also recently noted to have a left-sided neck mass which has been getting bigger and it is pretty firm concerning for possible malignancy. The patient reports productive cough which has now become nonproductive. She has been having generalized aches and pains and was initially on narcotics but currently has been taking Tylenol. The patient reports one prior episode of pneumonia several years ago. She denies any significant shortness of breath. Currently she is continued on bronchodilator therapy along with Levaquin and steroids which have been tapered. PAST MEDICAL HISTORY: Positive for history of hypertension. She denies history of coronary artery disease, diabetes, hyperlipidemia. PAST SURGICAL HISTORY: As above. She had oophorectomy. She was seen by Dr. Cardozo in the past but wishes to switch oncologist. MEDICATIONS: Home and current medications are reviewed. ALLERGIES: VALIUM, NEOSPORIN. PHYSICAL EXAMINATION: This is an elderly woman who appears comfortable. The patient is able to speak full sentences. Denies any acute symptoms. Vital signs are noted. HEENT: Normocephalic. Oral exam is unremarkable. NECK: Left side of neck is noted to have a firm mass which measures about 5 x 3 cm and immobile. Supple. CVS: First and second heart sounds are normal, regular, rhythmic. RESPIRATORY: Shows diminished breath sounds, posterior crackles are heard. ABDOMEN: Soft, obese. EXTREMITIES: Lower extremities show trace edema and chronic dermatitis changes. LABORATORY DATA AND TESTS: Sodium 141, potassium 3.7, chloride 105, bicarb 31, glucose 88, BUN 9, creatinine 0.7. BNP 157. White blood cell count 4.8, hemoglobin 11.8, hematocrit 37, PLT 351,000. Cultures have been negative. Chest x-ray shows hyperinflation with basilar effusion and atelectasis. CT neck showed multiple left neck adenopathy. ASSESSMENT: This is a 76 year old woman admitted with: 1) Basilar effusions which may be from subdiaphragmatic pathology. 2) Hypoxemia on oxygen. 3) Possible underlying CAP on antibiotics clinically improved. 4) Large cervical adenopathy concerning for malignancy. 5) Hypertension. 6) History of ovarian cancer status post chemotherapy. RECOMMENDATIONS: 1) I agree with current treatment. 2) The patient does not have much clinical bronchospasm and may reduce/discontinue IV steroids. 3) CT abdomen and pelvis may be beneficial to assess for any adenopathy in the peritoneal area as well. 4) Most certainly the patient does need biopsy of cervical lymph node. I called and discussed this with Dr. Lita Mcadams who will evaluate the patient for possible biopsy. 5) Will need home O2 assessment prior to discharge. 6) I agree with deep venous thrombosis prophylaxis. 7) Prognosis remains guarded. The patient reports that she will not take any more chemotherapy and would only want radiation if malignancy is confirmed. Further recommendations after surgical biopsy reports and clinical improvement. Thank you for allowing me to participate in the care of Ruby Lundberg.
[2017-04-03] MEDS: Levofloxacin 500MG/100ML D5W 500 MG/100 ML BAG IV SCH (16:19)
[2017-04-03] MEDS: NORVASC 5 MG PO SCH (21:53)
[2017-04-03] MEDS: NEURONTIN 300 MG PO SCH (21:54)
[2017-04-03] MEDS: Mirapex 0.5 MG Tablet PO SCH (22:54)
[2017-04-04] MEDS: PROVENTIL 2.5 MG/3 ML NEB IH SCH ×3 (03:09→11:19)
[2017-04-04] MEDS: Sodium Chloride 0.9% 1000 ML 1,000 ML IV SCH (04:10)
[2017-04-04] MEDS: TYLENOL EXTRA STRENGTH 500 MG PO SCH ×2 (04:22→09:55)
[2017-04-04] MEDS: solu-MEDROL 125 MG IV SCH (05:40)
--- NOTE | 2017-04-04 09:27 | PCM.DS ---
Discharge Summary Date of Admission: 04/01/17 08:32 Admitting Physician: CONNIE LAGUNA Consults: Consults on Case 04/01/17 13:25 Consult Pulmonology ROUTINE 04/03/17 13:45 Consult Surgery ROUTINE Primary Care Provider: CONNIE LAGUNA Allergies Allergies bacitracin zinc [From Neosporin ([id number])] Adverse Reaction (Verified 09:49) diazepam [From Valium] Adverse Reaction (Verified 03/29/17 09:49) diphenhydramine HCl [From Benadryl] Adverse Reaction (Verified 03/29/17 09:49) erythromycin base [Erythromycin Base] Adverse Reaction (Verified 03/29/17 09:49) hydrogen peroxide Adverse Reaction (Verified 03/29/17 09:49) morphine Adverse Reaction (Verified 03/29/17 09:49) neomycin sulfate [From Neosporin ([id number])] Adverse Reaction (Verified 09:49) Neuromuscular Blockers, Steroidal [Steroidal Neuromuscular Blockers] Adverse Reaction (Verified 03/29/17 09:49) NSAIDS (Non-Steroidal Anti-Inflamma Adverse Reaction (Verified 03/29/17 09:49) polymyxin B [From Neosporin ([id number])] Adverse Reaction (Verified 09:49) promethazine HCl [From Phenergan] Adverse Reaction (Verified 03/29/17 09:49) Hospital Summary - Hospital Course Hospital Course: Admitted with pneumonia, on O2. After several days of IV levaquin and solumedrol she started to improve. She is still having dyspnea on exertion. However her CT of the chest showed lymphadenopathy and she has a hard mass on her neck, all of which is thought to be related to her previous ovarian cancer. She has voiced a strong opinion about not wanting to have chemotherapy again, but she agreed to see DR. Pool for possible radiation. S he has an appointment with him tomorrow so we are releaseing her today so that she can make that appointment. Will start po steroids at home tonight and in the morning. If her SOB increases she needs to call the office and let me know, or come to ER. - Vitals & Intake/Output Vital Signs: Vital Signs Temperature 96.9 F 04/04/17 07:17 Pulse Rate 100 H 04/04/17 07:17 Respiratory Rate 24 04/04/17 08:00 Blood Pressure 145/82 04/04/17 07:17 O2 Sat by Pulse Oximetry 92 L 04/04/17 07:17 Oxygen-Last Documented O2 Percentage 3 Liters = 32% Intake & Output: Intake & Output 04/01/17 04/02/17 04/03/17 04/04/17 11:59 11:59 11:59 11:59 Intake Total 3658 2278 4457 5488 Output Total 4150 1100 1800 1600 Balance -492 1178 3877 3648 - Lab Result Diagrams: 04/01/17 05:45 04/01/17 05:45 Micro Results-Entire Visit: Microbiology 03/29/17 10:55 - Final Clean Catch Midstream NO GROWTH - Procedures and Test Procedures and Tests throughout Hospitalization: Therapy Orders & Screens 03/29/17 10:20 EKG STAT Comment: Diagnosis: cough,sob 03/29/17 10:25 Respiratory Nebulizer UD Comment: Diagnosis: cough,sob Name of medication?: albuterol nebs every 4 hours prn 03/29/17 10:38 OT Screen per Nursing Assess Comment: Protocol Order Physician Instructions: Greater than 3 points order OT Admission Screening Reason For Exam: Triggered on Admission Diagnosis: cough,sob Open Wound/Cellutlitis/Pressure Ulcers: Yes: CHRONIC EUN LOWER EXT Acute Fx/ORIF/Change in wt bearing status: No Severe MUSCULOSKELETAL pain: No ADL Dysfunction: No Acute CVA w/Hemiparesis/Hemiplegia: No Decreased Functional Mobility/Strength: No Sprain/Strain: No Acute Post-op Mobility Dysfunction: No Total Points: 5 PT Screen per Nursing Assess ONCE Comment: Protocol Order Physician Instructions: Greater than 3 points order PT Admission Screenin Reason For Exam: Triggered on Admission Diagnosis: cough,sob Open Wound/Cellutlitis/Pressure Ulcers: Yes: CHRONIC ENU LOWER EXT Acute Fx/ORIF/Change in wt bearing status: No Severe MUSCULOSKELETAL pain: No ADL Dysfunction: No Acute CVA w/Hemiparesis/Hemiplegia: No Decreased Functional Mobility/Strength: No Sprain/Strain: No Acute Post-op Mobility Dysfunction: No Total Points: 5 03/29/17 11:00 Oxygen NASAL CANNULA 2 lpm Comment: Diagnosis: cough,sob 03/29/17 11:02 Respiratory Nebulizer Q4H Comment: Diagnosis: cough,sob 04/04/17 09:02 Qualify for Home Oxygen TODAY Comment: Diagnosis: PNEUMONIA, DYSPNEA, N&V, LYMPHADEMOPATHY, MASS IN NECK Discharge Exam General Appearance: no apparent distress, alert Neurologic Exam: oriented x 3, cooperative Skin Exam: normal color, warm, dry Respiratory Exam: lungs clear, diminished breath sounds (good air exchange), No crackles/rales, No rhonchi, No wheezing Cardiovascular Exam: regular rate/rhythm, normal heart sounds, No murmur Gastrointestinal/Abdomen Exam: soft, normal bowel sounds, No tenderness, No distention Extremity Exam: swelling (trace pretibial edema. chronic skin changes, no erythema) Final Diagnosis/Problem List - Final Discharge Diagnosis/Problem (1) Pneumonia Current Visit: Yes Status: Acute Assessment & Plan: Much better, will send home on several days of po levaquin. Home on O2. po steroids. F/u in office next week. Call or return to ER if increasing SOB. (2) Pleural effusion Current Visit: Yes Status: Acute Assessment & Plan: f/u with Dr. Kirby outpatient. (3) Dyspnea Current Visit: Yes Status: Acute (4) Constipation Current Visit: Yes Status: Resolved (5) Pneumococcal vaccination indicated Current Visit: Yes Status: Acute Assessment & Plan: will get prevnar 13 in office. (6) Lymphadenopathy Current Visit: Yes Status: Chronic (7) Mass in neck Current Visit: Yes Status: Chronic Assessment & Plan: seeing Dr. Pool tomorrow. - Discharge Disposition: Home, Self-Care Condition: Stable Prescriptions: New Prednisone 20 mg [Deltasone 20 mg] 20 mg PO DAILY #17 tablet Levofloxacin [Levaquin] 500 mg PO DAILY #7 tablet Albuterol 2.5 mg/3 ml Neb [Proventil 2.5 mg/3 ml Neb] 2.5 mg IH Q4H PRN PRN #120 neb PRN Reason: shortness of breath Continue Levothyroxine Sodium 50 Mcg [Synthroid 50 Mcg] 50 mcg PO DAILY Loratadine 10 mg [Claritin 10 mg] 10 mg PO DAILY Pramipexole Di-HCl 0.5 mg [Mirapex 0.5 MG Tablet] 4.5 mg PO HS Omeprazole [Prilosec] 40 mg PO BID Aspirin 1 tablet PO DAILY Acetaminophen 1,000 mg PO QID Amlodipine Besylate 5 mg [Norvasc 5 mg] 2.5 mg PO QHS Gabapentin 300 mg PO HS Linaclotide [Linzess] 145 mcg PO DAILY Follow up with: VINCENZO POOL [NON-STAFF PHY W/O PRIVILEGES] - 04/05/17 9:15 am CONNIE LAGUNA [Primary Care Provider] - 04/12/17 10:15 am Forms: Patient Portal Information
[2017-04-04] MEDS: Protonix 40MG Tablet PO SCH (09:49)
[2017-04-04] MEDS: Colace 100 MG PO SCH (09:49)
[2017-04-04] MEDS: ECOTRIN 81 MG PO SCH (09:49)
[2017-04-04] MEDS: CLARITIN 10 MG PO SCH (09:49)
[2017-04-04] MEDS: SYNTHROID 50 MCG PO SCH (09:50)
[2017-04-04] MEDS: ENOXAPARIN SODIUM SQ SCH (09:50)
[2017-04-04] MEDS: Dulcolax 10 MG SUPP PR PRN (09:50)
[2017-04-04] MEDS: Lasix 40 MG/4 ML IV SCH (10:01)
[2017-04-04 11:27] VITALS: O2SAT 93
[2017-04-04 12:31] VITALS: BP 122/62; PULSE 102
--- NOTE | 2017-04-11 08:22 | OP ---
SURGERY DATE: PREOPERATIVE DIAGNOSIS: POSTOPERATIVE DIAGNOSIS: PROCEDURE: SURGEON: ANESTHESIA: ESTIMATED BLOOD LOSS: INDICATIONS: DESCRIPTION OF PROCEDURE AND FINDINGS:
--- NOTE | 2017-04-11 08:35 | CONS ---
CONSULT DATE: 04/03/2017 HISTORY: This is a 76 year-old female seen in consultation due to significant cervical lymphadenopathy. The patient has quite extensive medical comorbid issues. At this time she was admitted for shortness of breath. She does appear to have labored respirations at baseline while sitting up in bed this has slightly improved since she has been admitted. 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 During this admission for shortness of breath she was found to have multiple enlarged bilateral lymph nodes particularly in the left cervical region. She also has a new adrenal lesion and new mediastinal lesion concerning for malignancy and she does also have pleural effusion. A long discussion was had with the patient regarding her goals of care. At this time the patient states that she does not want to pursue chemo or further treatment due the malignancy. I have been consulted for possible biopsy. I discussed with the patient that is really not in her best interest to undergo an open surgical biopsy due to her severe medical comorbidities. She has significant shortness of breath even while just sitting and resting so I do not think that she is a surgical candidate for open biopsy unless her medical status significantly improved. At this time I would recommend for fine needle biopsy or core biopsy which could be radiologically guided and done by interventional radiology. However as the patient does not want any treatment for this I would not biopsy the patient because this will not change the medical planning. I discussed all of this in detail with the patient. She would like to think about which route she would like to go to and I did discuss with her the options to see oncology to see what her chemotherapy and/or radiation treatments options should these be malignant so that she can understand all of her options and treatment course. She said she would consider this versus palliative care and once she makes this decision that route can be pursued. At this time I will sign off. Please reconsult me if needed and also the patient may follow up with us as needed pending her decision. LAB DATA AND TESTS: White blood cell count 4.8, hemoglobin 11.8, PLT count 351,000. Creatinine 0.69. Urine culture negative. MEDICATIONS: Medications were reviewed in the medication reconciliation and include aspirin, Lasix and steroids. ALLERGIES: ALLERGIES WERE ALSO REVIEWED AND MULTIPLE.
== END 2017-04-04 14:50 | disposition home or self-care (01) | DRG 194 ==
LOC: MED SURG 09:55 → OBSVTOIN 04-01 08:32 → MED SURG 04-01 08:32
PROVIDERS: ADMIT Family Medicine; ATTEND Family Medicine
DX: J18.9 Pneumonia, unspecified organism (principal); J90 Pleural effusion, not elsewhere classified; L03.119 Cellulitis of unspecified part of limb; K59.00 Constipation, unspecified; R59.1 Generalized enlarged lymph nodes; R22.1 Localized swelling, mass and lump, neck; Z85.43 Personal history of malignant neoplasm of ovary; I10 Essential (primary) hypertension; M19.90 Unspecified osteoarthritis, unspecified site; I87.8 Other specified disorders of veins; K21.9 Gastro-esophageal reflux disease without esophagitis; Z91.89 Other specified personal risk factors, not elsewhere classified; R09.02 Hypoxemia; Z79.899 Other long term (current) drug therapy; Z87.891 Personal history of nicotine dependence
CPT/HCPCS: 36415; 70491; 71020; 71260; 80048; 80053; 81002; 83880; 84484; 85025; 85027; 85379; 87086; 93005; 94640; 94760; 94761; G0378; J0696; J1642; J1650; J1940; J1956; J2920; J2930; A9270-GY

== ENCOUNTER 2017-05-11 20:36 | Emergency (ER) | payer MEDICARE ==
[2017-05-11 21:07] LABS: BASOPHIL % 0.1 % (0.0-0.4); Eosinophil % 0.2 % (0.00-5.0); Granulocytes % 80.2 % (36.0-66.0); Lymphocytes % 6.5 % (24.0-44.0); Mean Corpuscular Hemoglobin 28.1 pg (26-32); Mean Platelet Volume 9.2 fl (6-9.5); Platelet Count 486 K/mm3 (150-450); Red Blood Count 4.73 M/mm3 (4.1-5.4); Red Cell Distribution Width 16.3 % (11.5-14.0); White Blood Count 10.1 K/mm3 (4.0-10.5)
--- NOTE | 2017-05-11 21:12 | ERPHSYRPT ---
- History of Present Illness Time Seen by Provider: 05/11/17 21:02 Source: patient, EMS Exam Limitations: no limitations Patient Subjective Stated Complaint: Pt C/O feeling short of breath for several days. Also with swelling lower extremities. Per EMS pt initially short of breath with wheezing and diminished bases. Pt C/O orthopnea. Room air 88%. Known pneumonia diagnosis, discharged within the last week with this dx. Triage Nursing Assessment: Pt alert, oriented, receiving breathing tx upon arrival. RT placed pt on bipap upon triage. Skin pink, warm, dry. Resps labored, tachypenic. feet swollen, cold to touch. Physician History: This is a 76-year-old white female with history of angina, hypercholesterolemia , high blood pressure, hypothyroidism, already cancer, heart murmur, venous stasis, GERD, cellulitis of lower extremities. Patient arrives with complaint of shortness of breath for several days patient has been having swelling of her lower extremities. She was noted to have a pulse ox of 88% on room air by medics she was given DuoNeb treatment albuterol treatments Solu-Medrol, and a half an inch of Nitropaste. Patient also has been started on a BiPAP. Past medical history includes angina, high blood pressure, hypothyroidism, osteoarthritis, ovarian cancer, heart murmur Past surgical history includes appendectomy, hernia repair, hysterectomy, oophorectomy, Timing/Duration: day(s) (2 days) Activities at Onset: none Severity of Dyspnea-Max: moderate Severity of Dyspnea-Current: moderate Possible Cause: occasional episodes Modifying Factors: Improves With: activity, albuterol inhaler Associated Symptoms: constant, edema, wheezing, weakness, leg swelling, No intermittent, No anxiety, No cough, No chest pain/discomfort, No fever, No insomnia, No loss of appetite, No lightheadedness, No ankle swelling, No chills , No hemoptysis, No calf pain, No dizziness, No heaviness, No heart racing, No lightheadedness, No muscle spasms feet, No muscle spasms hands, No painful breathing, No productive cough, No sweating, No tingling face International travel in last 2 weeks: No Allergies/Adverse Reactions: bacitracin zinc [From Neosporin ([id number])] Adverse Reaction (Verified 09:49) diazepam [From Valium] Adverse Reaction (Verified 05/11/17 20:51) diphenhydramine HCl [From Benadryl] Adverse Reaction (Verified 05/11/17 20:51) erythromycin base [Erythromycin Base] Adverse Reaction (Verified 05/11/17 20:51) hydrogen peroxide Adverse Reaction (Verified 05/11/17 20:51) morphine Adverse Reaction (Verified 05/11/17 20:51) neomycin sulfate [From Neosporin ([id number])] Adverse Reaction (Verified 05/17 20:51) Neuromuscular Blockers, Steroidal [Steroidal Neuromuscular Blockers] Adverse Reaction (Verified 05/11/17 20:51) NSAIDS (Non-Steroidal Anti-Inflamma Adverse Reaction (Verified 05/11/17 20:51) polymyxin B [From Neosporin ([id number])] Adverse Reaction (Verified 20:51) promethazine HCl [From Phenergan] Adverse Reaction (Verified 05/11/17 20:51) Home Medications: Levothyroxine Sodium 50 Mcg [Synthroid 50 Mcg] 50 mcg PO DAILY 02/18/14 [ History] Loratadine 10 mg [Claritin 10 mg] 10 mg PO DAILY 02/18/14 [History] Omeprazole [Prilosec] 40 mg PO BID 02/18/14 [History] Pramipexole Di-HCl 0.5 mg [Mirapex 0.5 MG Tablet] 4.5 mg PO HS 02/18/14 [ History] Aspirin 1 tablet PO DAILY 01/21/15 [History] Acetaminophen 1,000 mg PO QID 12/26/15 [History] Amlodipine Besylate 5 mg [Norvasc 5 mg] 2.5 mg PO QHS 10/26/16 [History] Gabapentin 300 mg PO HS 11/23/16 [History] Linaclotide [Linzess] 145 mcg PO DAILY 12/28/16 [History] Hx Tetanus, Diphtheria Vaccination/Date Given: No Hx Influenza Vaccination/Date Given: No Hx Pneumococcal Vaccination/Date Given: No - Review of Systems Constitutional: No Fever, No Chills Eyes: No Symptoms Ears, Nose, & Throat: No Symptoms Respiratory: Cough, Dyspnea, Dyspnea on Exertion (SAINI), Wheezing Cardiac: Edema, No Chest Pain, No Palpitations, No Syncope, No Orthopnea, No PND Abdominal/Gastrointestinal: No Abdominal Pain, No Nausea, No Vomiting, No Diarrhea Genitourinary Symptoms: No Dysuria Musculoskeletal: No Back Pain, No Neck Pain Skin: No Rash Neurological: No Dizziness, No Focal Weakness, No Sensory Changes Psychological: No Symptoms Endocrine: No Symptoms All Other Systems: Reviewed and Negative (E Estevan will give more him) - Past Medical History Pertinent Past Medical History: Yes Neurological History: No Pertinent History ENT History: No Pertinent History Cardiac History: Angina, High Cholesterol, Hypertension Respiratory History: No Pertinent History Endocrine Medical History: No Pertinent History Musculoskeletal History: Osteoarthritis GI Medical History: No Pertinent History History: No Pertinent History Psycho-Social History: No Pertinent History Female Reproductive Disorders: No Pertinent History Other Medical History: MALIGNANT TUMOR OF OVARY; VENOUS STASIS, GERD, CELLULITIS OF LE, PAIN IN UE AND LE, - Past Surgical History Past Surgical History: Yes Neuro Surgical History: No Pertinent History Cardiac: Vascular Surgery Respiratory: No Pertinent History Gastrointestinal: Appendectomy Genitourinary: No Pertinent History Musculoskeletal: Joint Replacement, Orthopedic Surgery Female Surgical History: No Pertinent History Other Surgical History: oophorectomy r/t cancer, knee debridement/scope, cataract surgery, carpal tunnel, knee scope, states nodule removed from left side neck, ovarian cancer,received tx for cancer. right chest port - Social History Smoking Status: Former smoker Exposure to second hand smoke: No Drug Use: none Patient Lives Alone: No - Nursing Vital Signs Nursing Vital Signs: Initial Vital Signs Temperature 97.6 F 05/11/17 20:37 Pulse Rate 128 H 05/11/17 20:37 Respiratory Rate 28 H 05/11/17 20:37 O2 Sat by Pulse Oximetry 95 05/11/17 20:37 Pain Scale Pain Intensity 0 - Physical Exam General Appearance: moderate distress Eye Exam: PERRL/EOMI Ears, Nose, Throat Exam: hearing grossly normal, normal ENT inspection, normal pharynx, No hearing decreased, No nasal congestion Neck Exam: normal inspection, supple Respiratory Exam: diminished breath sounds, other (patient with crackles and wheezes on arrival have cleared) Cardiovascular/Chest Exam: tachycardia, other (heart tachycardic without murmur) Abdominal/Gastrointestinal Exam: soft, No tenderness, No distention, No mass Extremity Exam: swelling (1-2+ edema distally legs) Peripheral Pulses Exam: dorsalis-pedis (R): 2+, dorsalis-pedis (L): 2+ Neurologic Exam: alert, oriented x 3, cooperative, pantry attendant II-XII nml as tested, sensation nml, No motor deficits Skin Exam: normal color, warm, No dry SpO2 Interpretation: borderline oxygenation (95% 0n bipap 50%) SpO2: 95 Oxygen Delivery: BiPap - Course Nursing assessment & vital signs reviewed: Yes EKG Interpreted by Me: RATE (128 bpm), Other (EKG, sinus tachycardia, 1 28 bpm, normal axis, no acute ST or T wave changes noted) - Radiology Exams Chest X-ray Interpretation: Interpreted by me, Other (large right pleural effusion bilateral increased interstitial markings) - CT Exams Chest CT Interpretation: Tele-radiologist Report (CTA chest: Impression: 1. Moderate pulmonary embolism burden bilaterally. Reflux of contrast into the IVC is suspicious for right heart strain. 2. Large right pleural effusion increased from prior study.) Ordered Tests: Active Orders 24 hr Category Date Time Status Charger Operator STAT Care 05/11/17 20:51 Active EKG-ER Only STAT Care 05/11/17 21:05 Active Guerrero [Catheter-[place] Guerrero] STAT Care 05/11/17 21:37 Active IV Insertion STAT Care 05/11/17 21:05 Active Pulse Oximetry (ED) STAT Care 05/11/17 20:51 Active Saline Lock STAT Care 05/11/17 20:51 Active CHEST 1 VIEW (PORTABLE) Stat Exams 05/11/17 21:06 Taken CHEST WITH CONTRAST [CT] Stat Exams 05/11/17 22:09 Taken BLOOD CULTURE Stat Lab 05/11/17 21:20 Received CBC W DIFF Stat Lab 05/11/17 20:40 Completed CMP Stat Lab 05/11/17 20:40 Completed CULTURE,SPUTUM Stat Lab 05/11/17 22:22 Uncollected CULTURE,URINE Stat Lab 05/11/17 23:25 Received D-DIMER QUANTITATION Stat Lab 05/11/17 21:20 Completed Lactic Acid Stat Lab 05/11/17 21:15 Completed NT PRO BNP Stat Lab 05/11/17 21:20 Completed PROTIME WITH INR Stat Lab 05/11/17 20:40 Completed PTT Stat Lab 05/11/17 20:40 Completed TROPONIN Q3H Lab 05/11/17 21:20 Completed TROPONIN Q3H Lab 05/12/17 00:15 Ordered TROPONIN Q3H Lab 05/12/17 03:15 Ordered TROPONIN Q3H Lab 05/12/17 06:15 Ordered TROPONIN Q3H Lab 05/12/17 09:15 Ordered UA Stat Lab 05/11/17 23:25 Completed VENOUS BLOOD GAS Stat Lab 05/11/17 21:15 Completed Medication Summary Discontinued Medications Generic Name Dose Route Start Last Admin Trade Name Freq PRN Reason Stop Dose Admin Enoxaparin Sodium 90 mg 05/12/17 00:01 Enoxaparin Sodium 1 mg/kg (90 mg) 05/12/17 00:02 SQ Q12H STA Enoxaparin Sodium Confirm 05/12/17 00:06 Enoxaparin Sodium Administered 05/12/17 00:07 Dose 120 mg SQ .STK-MED ONE Furosemide 40 mg 05/11/17 22:03 05/11/17 22:09 Lasix 40 Mg/4 Ml IV 05/11/17 22:04 40 mg STAT ONE Administration Furosemide Confirm 05/11/17 22:09 Lasix 40 Mg/4 Ml Administered 05/11/17 22:10 Dose 40 mg .ROUTE .STK-MED ONE Ceftriaxone Sodium/Dextrose 1 g in 50 mls @ 100 mls/hr 05/11/17 22:09 22:19 Rocephin 1 Gm-D5w 50 Ml Bag IV 05/11/17 22:38 100 mls/hr STAT STA Administration Ceftriaxone Sodium/Dextrose Confirm 05/11/17 22:18 Rocephin 1 Gm-D5w 50 Ml Bag Administered 05/11/17 22:19 Dose 1 g in 50 mls @ ud IV .STK-MED ONE Lab/Rad Data: Laboratory Result Diagrams 05/11/17 20:40 05/11/17 20:40 Laboratory Results 05/11/17 05/11/17 05/11/17 Range/Units 23:25 21:20 21:20 WBC (4.0-10.5) K/mm3 RBC (4.1-5.4) M/mm3 Hgb (12.0-16.0) gm/dl Hct (35-47) % MCV (78-100) fl MCH (26-32) pg MCHC (32-36) g/dl RDW (11.5-14.0) % Plt Count (150-450) K/mm3 MPV (6-9.5) fl Gran % (36.0-66.0) % Lymphocytes % (24.0-44.0) % Monocytes % (0.0-12.0) % Eosinophils % (0.00-5.0) % Basophils % (0.0-0.4) % Basophils # (0-0.4) INR (0.8-3.0) APTT (25.3-37.0) SECONDS D-Dimer 1276 H* (0-500) ng/mL VBG pH (7.32-7.42) VBG pCO2 at Pat Temp (42-55) mm/Hg VBG pO2 at Pat Temp (25-40) mm/Hg VBG HCO3 (22-28) meq/L VBG O2 Sat (Jennifer) (95-100) VBG Base Excess (-2.0-2.0) VBG Hemoglobin VBG Carboxyhemoglobin (0.0-6.9) % T HGB POC Potassium (3.5-5.1) Sodium (136-145) mEq/L Potassium (3.5-5.1) mEq/L Chloride (98-107) mEq/L Carbon Dioxide (21-32) mEq/L Anion Gap (5-15) MEQ/L BUN (9-20) mg/dL Creatinine (0.55-1.30) mg/dl Estimated GFR ML/MIN Glucose (70-110) MG/DL Lactic Acid (0.4-2.0) Calcium (8.5-10.1) mg/dL Total Bilirubin (0.2-1.0) mg/dL AST (15-37) U/L ALT (12-78) U/L Alkaline Phosphatase (46-116) U/L Troponin I < 0.017 (0.000-0.056) ng/ml NT-Pro-B Natriuret Pep (0-450) pg/ml Serum Total Protein (6.4-8.2) gm/dL Albumin (3.4-5.0) g/dL Ur Collection Type CATH Urine Color YELLOW (YELLOW) Urine Appearance CLEAR (CLEAR) Urine pH 5.0 (5-6) Ur Specific [place] 1.010 (1.005-1.025) Urine Protein NEGATIVE (Negative) Urine Ketones NEGATIVE (NEGATIVE) Urine Blood NEGATIVE (0-5) Giovany/ul Urine Nitrite NEGATIVE (NEGATIVE) Urine Bilirubin NEGATIVE (NEGATIVE) Urine Urobilinogen NORMAL (0-1) mg/dL Ur Leukocyte Esterase NEGATIVE (NEGATIVE) Urine Glucose NEGATIVE (NEGATIVE) mg/dL Specimen Received 05/11/17 1889 05/11/17 05/11/17 05/11/17 Range/Units 21:20 21:15 21:15 WBC (4.0-10.5) K/mm3 RBC (4.1-5.4) M/mm3 Hgb (12.0-16.0) gm/dl Hct (35-47) % MCV (78-100) fl MCH (26-32) pg MCHC (32-36) g/dl RDW (11.5-14.0) % Plt Count (150-450) K/mm3 MPV (6-9.5) fl Gran % (36.0-66.0) % Lymphocytes % (24.0-44.0) % Monocytes % (0.0-12.0) % Eosinophils % (0.00-5.0) % Basophils % (0.0-0.4) % Basophils # (0-0.4) INR (0.8-3.0) APTT (25.3-37.0) SECONDS D-Dimer (0-500) ng/mL VBG pH 7.41 (7.32-7.42) VBG pCO2 at Pat Temp 49 (42-55) mm/Hg VBG pO2 at Pat Temp 39 (25-40) mm/Hg VBG HCO3 31.1 H* (22-28) meq/L VBG O2 Sat (Jennifer) 83.2 L (95-100) VBG Base Excess 5.3 H (-2.0-2.0) VBG Hemoglobin 14.2 VBG Carboxyhemoglobin 3.0 (0.0-6.9) % T HGB POC Potassium 4.6 (3.5-5.1) Sodium (136-145) mEq/L Potassium (3.5-5.1) mEq/L Chloride (98-107) mEq/L Carbon Dioxide (21-32) mEq/L Anion Gap (5-15) MEQ/L BUN (9-20) mg/dL Creatinine (0.55-1.30) mg/dl Estimated GFR ML/MIN Glucose (70-110) MG/DL Lactic Acid 1.7 (0.4-2.0) Calcium (8.5-10.1) mg/dL Total Bilirubin (0.2-1.0) mg/dL AST (15-37) U/L ALT (12-78) U/L Alkaline Phosphatase (46-116) U/L Troponin I (0.000-0.056) ng/ml NT-Pro-B Natriuret Pep 495 H (0-450) pg/ml Serum Total Protein (6.4-8.2) gm/dL Albumin (3.4-5.0) g/dL Ur Collection Type Urine Color (YELLOW) Urine Appearance (CLEAR) Urine pH (5-6) Ur Specific [place] (1.005-1.025) Urine Protein (Negative) Urine Ketones (NEGATIVE) Urine Blood (0-5) Giovany/ul Urine Nitrite (NEGATIVE) Urine Bilirubin (NEGATIVE) Urine Urobilinogen (0-1) mg/dL Ur Leukocyte Esterase (NEGATIVE) Urine Glucose (NEGATIVE) mg/dL Specimen Received 05/11/17 05/11/17 05/11/17 Range/Units 20:40 20:40 20:40 WBC 10.1 (4.0-10.5) K/mm3 RBC 4.73 (4.1-5.4) M/mm3 Hgb 13.3 (12.0-16.0) gm/dl Hct 42.1 (35-47) % MCV 89.0 (78-100) fl MCH 28.1 (26-32) pg MCHC 31.6 L (32-36) g/dl RDW 16.3 H (11.5-14.0) % Plt Count 486 H (150-450) K/mm3 MPV 9.2 (6-9.5) fl Gran % 80.2 H (36.0-66.0) % Lymphocytes % 6.5 L (24.0-44.0) % Monocytes % 13.0 H (0.0-12.0) % Eosinophils % 0.2 (0.00-5.0) % Basophils % 0.1 (0.0-0.4) % Basophils # 0.01 (0-0.4) INR 1.44 (0.8-3.0) APTT 33.0 (25.3-37.0) SECONDS D-Dimer (0-500) ng/mL VBG pH (7.32-7.42) VBG pCO2 at Pat Temp (42-55) mm/Hg VBG pO2 at Pat Temp (25-40) mm/Hg VBG HCO3 (22-28) meq/L VBG O2 Sat (Jennifer) (95-100) VBG Base Excess (-2.0-2.0) VBG Hemoglobin VBG Carboxyhemoglobin (0.0-6.9) % T HGB POC Potassium (3.5-5.1) Sodium 134 L (136-145) mEq/L Potassium 4.8 (3.5-5.1) mEq/L Chloride 97 L (98-107) mEq/L Carbon Dioxide 33.9 H (21-32) mEq/L Anion Gap 7.8 (5-15) MEQ/L BUN 24 H (9-20) mg/dL Creatinine 0.78 (0.55-1.30) mg/dl Estimated GFR > 60 ML/MIN Glucose 113 H (70-110) MG/DL Lactic Acid (0.4-2.0) Calcium 9.2 (8.5-10.1) mg/dL Total Bilirubin 0.30 (0.2-1.0) mg/dL AST 25 (15-37) U/L ALT 22 (12-78) U/L Alkaline Phosphatase 131 H (46-116) U/L Troponin I (0.000-0.056) ng/ml NT-Pro-B Natriuret Pep (0-450) pg/ml Serum Total Protein 6.8 (6.4-8.2) gm/dL Albumin 2.1 L (3.4-5.0) g/dL Ur Collection Type Urine Color (YELLOW) Urine Appearance (CLEAR) Urine pH (5-6) Ur Specific [place] (1.005-1.025) Urine Protein (Negative) Urine Ketones (NEGATIVE) Urine Blood (0-5) Giovany/ul Urine Nitrite (NEGATIVE) Urine Bilirubin (NEGATIVE) Urine Urobilinogen (0-1) mg/dL Ur Leukocyte Esterase (NEGATIVE) Urine Glucose (NEGATIVE) mg/dL Specimen Received - Progress Progress: improved Air Movement: fair Progress Note: 05/11/17 22:10 Patient is better after DuoNeb, albuterol, Nitropaste Solu-Medrol (placed by medics), BiPAP Chest x-ray shows a large effusion on the right d-dimer is elevated BNP is elevated. Blood cultures have been obtained, Patient will be given Rocephin and Lasix Case is discussed with Dr. Carranza pension adviser for Dr. Rodríguez. Will obtain CT a chest. 05/11/17 23:21 Patient's vitals on arrival triggered the sepsis protocol screen. However patient with a normal lactic acid of 1.7 white count is normal at 10.1 patient appears to have a large effusion on the chest x-ray with a BNP of 495 Patient does not appear to have sepsis She has been cultured however and received Rocephin. She she appears to have a large effusion on her right lung and she has not given a bolus of IV fluids rather she was given Lasix . She was also placed on BiPAP . She had received DuoNeb treatment albuterol treatment and Solu-Medrol by the medics prior to arrival. Currently the patient has good peripheral profusion she appears to be more comfortable than when she arrived. She is on BiPAP at 75% oxygen, pulse ox 92%, blood pressure 116/77 heart rate 119 Patient's lactic acid 1.7 white count 10.1 hemoglobin 13.3 hematocrit 42.1. I have discussed the case with Dr. Carranza Plan to place patient on telemetry continue BiPAP, Lasix, Rocephin. 05/11/17 23:51 Patient with moderate pulmonary embolus burden bilaterally, reflux of contrast into the IVC suspicious for right heart strain, also with a large right pleural effusion increased from prior studies. Case discussed with Dr. Carranza. He feels that patient would best be served at a facility with pulmonary consults available. Will consider Lovenox, 05/12/17 00:[address] Fleming, [facility] through the one call. Case is discussed with Dr. Fleming, Will give patient Lovenox 1 mg/kg subcutaneously plan on transfer to [facility] - Departure Time of Disposition: 00:04 Departure Disposition: Transfer ([facility] Dr Fleming) Clinical Impression: Shortness of breath, Pleural effusion, right, Bronchospasm Pulmonary embolism Qualifiers: Pulmonary embolism type: other Chronicity: acute Acute cor pulmonale presence: without acute cor pulmonale Qualified Code(s): I26.99 - Other pulmonary embolism without acute cor pulmonale Condition: Fair Critical Care Time: No Referrals: CONNIE RODRÍGUEZ [Primary Care Provider] -
[2017-05-11 21:27] LABS: VBG BASE EXCESS 5.3 (-2.0-2.0); VBG HCO3- 31.1 meq/L (22-28); VBG HEMOGLOBIN 14.2; VBG O2 SATURATION 83.2 (95-100); VBG POTASSIUM 4.6 (3.5-5.1); VBG pH 7.41 (7.32-7.42)
[2017-05-11 21:28] LABS: INR 1.44 (0.8-3.0); PROTIME 16.1 SECONDS (9.95-12.35)
[2017-05-11 21:35] LABS: ALBUMIN 2.1 g/dL (3.4-5.0); ALKALINE PHOSPHATASE 131 U/L (46-116); ANION GAP 7.8 MEQ/L (5-15); BLOOD UREA NITROGEN 24 mg/dL (9-20); CHLORIDE 97 mEq/L (98-107); Carbon Dioxide 33.9 mEq/L (21-32); Glucose 113 MG/DL (70-110); Potassium 4.8 mEq/L (3.5-5.1); SGOT/AST 25 U/L (15-37); SGPT/ALT 22 U/L (12-78); SODIUM 134 mEq/L (136-145); Total Protein 6.8 gm/dL (6.4-8.2)
[2017-05-11] MEDS ORDERED: Lasix 40 MG/4 ML IV ONE (22:03)
[2017-05-11] MEDS ORDERED: ROCEPHIN 1 Gm-D5w 50 ml Bag** 1 G/50 ML IVPB IV STA (22:09)
[2017-05-11] MEDS ORDERED: Lasix 40 MG/4 ML ONE (22:09)
[2017-05-11 22:12] VITALS: O2SAT 95
[2017-05-11] MEDS ORDERED: ROCEPHIN 1 Gm-D5w 50 ml Bag** 1 G/50 ML IVPB IV ONE (22:18)
[2017-05-11 23:30] LABS: Collection Type CATH
[2017-05-11 23:32] LABS: Bilirubin NEGATIVE (NEGATIVE); Blood NEGATIVE Ery/ul (0-5); COMPLETE URINE MICROSCOPIC? NO; Glucose NEGATIVE (NEGATIVE); Leukocyte Esterase NEGATIVE (NEGATIVE)
[2017-05-12] MEDS ORDERED: ENOXAPARIN SODIUM SQ STA (00:01)
[2017-05-12] MEDS ORDERED: ENOXAPARIN SODIUM SQ ONE (00:06)
[2017-05-12 00:43] VITALS: BP 115/68; PULSE 115
--- NOTE | 2017-05-12 08:53 | XRAY ---
Indication: Respiratory distress. Elevated d-dimer. Multiple contiguous axial images obtained through the chest using 80 cc Isovue 370 contrast and PE protocol. Comparison: March 29, 2017. There is satisfactory opacification of the pulmonary arteries. However mild respiration artifact limits evaluation of the more distal segmental branches. There are now occluding pulmonary emboli in the right upper lobe and lingula as well as nonoccluding pulmonary emboli in the left upper and left lower lobes. Heart is not enlarged. Aorta is normal in course and caliber. Again right-sided Port-A-Cath, left hilar calcified nodes, and small hiatal hernia. Examination of the lungs demonstrates interval increasing large right effusion now occupying at least 75% of the hemithorax with worsening right middle and right lower lobe compressive atelectasis. Stable moderate left effusion. Bony thorax intact again with mild degenerative changes throughout the spine. Limited upper abdomen demonstrate stable 2 cm left adrenal mass. Impression: 1. New bilateral pulmonary emboli as detailed. 2. Again bilateral effusions increased on the right with atelectasis. 3. Stable hiatal hernia and left adrenal gland mass. Comment: Preliminary interpretation was made by C. No discrepancy. CTDI 23.58
--- NOTE | 2017-05-12 08:55 | XRAY ---
Indication: Short of breath. Distress. Comparison: April 01, 2017. Portable chest demonstrates interval worsening large bilateral effusions, right greater than left. Right effusion occupies at least 75% of the hemithorax. Upper lungs clear. Heart is not enlarged with stable right-sided Port-A-Cath and left hilar calcified nodes.
== END 2017-05-12 00:56 | disposition short-term general hospital (02) ==
LOC: ED 20:36
DX: I26.99 Other pulmonary embolism without acute cor pulmonale (principal); R06.02 Shortness of breath; E78.00 Pure hypercholesterolemia, unspecified; I10 Essential (primary) hypertension; R05 Cough; R06.00 Dyspnea, unspecified; R60.9 Edema, unspecified; R06.2 Wheezing; Z79.899 Other long term (current) drug therapy
CPT/HCPCS: 36415; 51702; 71010; 71260; 80053; 81002; 82805; 83605; 83880; 84484; 85025; 85379; 85610; 85730; 87040; 87086; 93005; 93041; 94002; 96365; 96372; 96374; 99285; J0696; J1650; J1940